=== PATIENT | female | born 1995 | race Caucasian/White ===

== ENCOUNTER 2019-02-10 16:50 | Emergency (ER) | payer BC ==
[2019-02-10 17:02] VITALS: BP 106/58; PULSE 84; TEMP 98.1; BMI 23.1
[2019-02-10] MEDS ORDERED: SULFAMETHOXAZOLE/TRIMETHOPRIM 800MG/160MG D.S. TABLET PO ONE (17:25)
--- NOTE | 2019-02-10 17:32 | PDOC ---
History of Present Illness - General Chief Complaint: Wound Stated Complaint: RIGHT LEG INJURY Time Seen by Provider: 02/10/19 17:16 History Source: Patient Exam Limitations: No Limitations - History of Present Illness Initial Comments: 02/10/19 17:33 Patient came for evaluation of sore on the back of her right upper calf. States is uncertain as to cause but thinks had an insect bite that was very itchy, on Monday, which is progressively gotten more swollen and tender. Now states is painful and noted some bubbling and infectiousness to site. Denies fever, no one else in house has any problems the same. Has not been exposed that she is known to out stores or any other infestations. Timing/Duration: reports: getting worse Severity: Yes: mild, moderate Location: reports: extremities (calf) Associated Symptoms: reports: denies symptoms Past History - Travel Traveled outside of the country in the last 30 days: No Close contact w/someone who was outside of country & ill: No - Past Medical History Allergies/Adverse Reactions: Allergies Allergy/AdvReac Type Severity Reaction Status Date / Time No Known Allergies Allergy Verified 02/10/19 16:58 Home Medications: Ambulatory Orders Mupirocin Cream [Bactroban 2% Cream -] 1 applic TP BID #1 tube 02/10/19 Sulfamethoxazole/Trimethoprim [Bactrim *Ds*] 1 each PO BID #14 tablet 02/10/19 - Suicide/Smoking/Psychosocial Hx Smoking History: Never smoked Review of Systems - Review of Systems Able to Perform ROS?: Yes Is the patient limited Sami proficient: Yes Constitutional: Yes: See HPI. No: Symptoms Reported, Fever, Malaise HEENTM: No: Symptoms Reported Respiratory: No: Symptoms reported Musculoskeletal: Yes: Symptoms Reported, See HPI Integumentary: Yes: Symptoms Reported, See HPI, Erythema, Lesions, Pruritus Neurological: No: Symptoms reported All Other Systems: Reviewed and Negative *Physical Exam - Vital Signs Last Vital Signs Temp Pulse Resp BP Pulse Ox 98.1 F 84 18 106/58 L 99 02/10/19 17:00 02/10/19 17:00 02/10/19 17:00 02/10/19 17:00 02/10/19 17:00 - Physical Exam General Appearance: Yes: Nourished, Appropriately Dressed, Apparent Distress HEENT: positive: WIL, Normal ENT Inspection, TMs Normal, Pharynx Normal Neck: positive: Supple. negative: Lymphadenopathy (R), Lymphadenopathy (L) Respiratory/Chest: positive: Lungs Clear, Normal Breath Sounds Extremity: positive: Normal Capillary Refill, Normal Range of Motion, Swelling ( patient with erythematous lesion approximately 10 cm with a central lesion that has a cellulitic appearance with purulent drainage. Was tender to touch, has no streaking, no fluctuance.). 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 Will treat for secondary infection with Bactrim and Bactroban cream *DC/Admit/Observation/Transfer Diagnosis at time of Disposition: Cellulitis of leg, right - Discharge Dispostion Disposition: HOME Condition at time of disposition: Stable Decision to Admit order: No - Referrals - Patient Instructions Printed Discharge Instructions: DI for Skin Abscess Additional Instructions: Rest, keep area elevated. Avoid strenuous activity or exercise until wound is healed Use hot soaks to area to bring more blood to the surface and encourage drainage May change dressings as needed to keep clean - Allow water from shower to wash area thoroughly for 2-3 minutes, and pat dry upon exit of shower and replace dressing. Change his dressing daily until the wound is completely healed. May use Tylenol or Motrin for mild pain relief Continue all medications as prescribed Followup with private physician in 2-3 days for wound check Return to emergency Department for worsening swelling, pain, redness, fevers as needed - Post Discharge Activity Forms/Work/School Notes: Back to Work
[2019-02-10] MEDS ORDERED: MUPIROCIN CA 2% TOPICAL CREAM 15 GM TUBE TP SCH (22:00)
== END 2019-02-10 17:36 | disposition home or self-care (01) ==
LOC: JERFT 16:50
DX: R22.41 Localized swelling, mass and lump, right lower limb (principal)
CPT/HCPCS: 99281-25

== ENCOUNTER 2021-03-24 21:27 | Emergency (ER) | payer BC, OTHER ==
[2021-03-24 21:48] VITALS: BP 101/67; PULSE 80; TEMP 98.1; BMI 24.5
== END 2021-03-24 23:40 | disposition home or self-care (01) ==
LOC: JER 21:27
DX: B30.9 Viral conjunctivitis, unspecified (principal)
CPT/HCPCS: 99283-25

== ENCOUNTER 2021-05-11 00:09 | Emergency (ER) | payer OTHER ==
[2021-05-11 01:03] VITALS: BP 103/61; PULSE 76; TEMP 98.2; BMI 25.7
[2021-05-11] MEDS ORDERED: TETRACAINE 0.5% HCL 0.6ML DROPPER.BOTTLE OD ONE (04:01)
[2021-05-11] MEDS ORDERED: FLUORESCEIN NA 1 EA STRIP OD ONE (04:01)
[2021-05-11] MEDS ORDERED: FLUORESCEIN NA 1 EA STRIP ONE (04:04)
[2021-05-11] MEDS ORDERED: TETRACAINE 0.5% OPHTH SOLN 2 ML BOTTLE ONE (04:04)
[2021-05-11] MEDS ORDERED: ERYTHROMYCIN 0.5% OPHTHALMIC OINTMENT 3.5 GM TUBE OD ONE (04:38)
[2021-05-11] MEDS ORDERED: ERYTHROMYCIN 0.5% OPHTHALMIC OINTMENT 3.5 GM TUBE ONE (04:48)
== END 2021-05-11 04:52 | disposition home or self-care (01) ==
LOC: JER 00:09
DX: S05.01XA Injury of conjunctiva and corneal abrasion without foreign body, right eye, initial encounter (principal); W26.8XXA Contact with other sharp object(s), not elsewhere classified, initial encounter
CPT/HCPCS: 99283-25

== ENCOUNTER 2021-12-11 12:10 | Emergency (ER) | payer OTHER ==
[2021-12-11 12:20] VITALS: BP 104/67; PULSE 91; TEMP 97.9; BMI 23.7
== END 2021-12-11 13:03 | disposition home or self-care (01) ==
LOC: JER 12:10
DX: S60.410A Abrasion of right index finger, initial encounter (principal); Y99.9 Unspecified external cause status
CPT/HCPCS: 73140-TC-RT-FY; 99283-25

== ENCOUNTER 2022-03-16 12:23 | Emergency (ER) | payer OTHER ==
[2022-03-16 12:28] VITALS: BP 103/64; PULSE 87; TEMP 98; BMI 26.0
== END 2022-03-16 14:36 | disposition home or self-care (01) ==
LOC: JERFT 12:23 → JER 12:23 → JERFT 14:36
DX: B30.9 Viral conjunctivitis, unspecified (principal)
CPT/HCPCS: 99283-25

== ENCOUNTER 2022-05-09 16:23 | Emergency (ER) | payer OTHER ==
[2022-05-09 16:47] VITALS: BP 114/72; PULSE 82; RESP 18; TEMP 98.6; BMI 23.8
== END 2022-05-09 19:39 | disposition home or self-care (01) ==
LOC: JER 16:23
DX: M67.432 Ganglion, left wrist (principal)
CPT/HCPCS: 73110-TC-LT-FY; 73130-TC-LT-FY; 99283-25

== ENCOUNTER 2022-09-07 09:20 | Emergency (ER) | payer OTHER ==
[2022-09-07 09:29] VITALS: BP 114/74; PULSE 118; RESP 18; TEMP 99; BMI 26.5
[2022-09-07] MEDS ORDERED: IBUPROFEN 600 MG TABLET (FP) PO ONE (10:32)
== END 2022-09-07 11:59 | disposition home or self-care (01) ==
LOC: JER 09:20
DX: U07.1 COVID-19 (principal)
CPT/HCPCS: 0241U-QW; 87651; 99283-25

== ENCOUNTER 2025-02-17 16:17 | Emergency (ER) | payer SELFPAY ==
[2025-02-17 16:32] VITALS: BP 113/66; PULSE 88; RESP 16; TEMP 98.6; BMI 30.1
== END 2025-02-17 19:09 | disposition home or self-care (01) ==
LOC: JER 16:17 → JERFT 16:17
DX: S61.322A Laceration with foreign body of right middle finger with damage to nail, initial encounter (principal); W45.8XXA Other foreign body or object entering through skin, initial encounter
CPT/HCPCS: 73140-TC-RT-FY; 99283-25